=== PATIENT | female | born 1960 | race Caucasian/White ===

== ENCOUNTER 2017-05-23 10:55 | Emergency (ER) | payer BC ==
--- NOTE | 2017-05-23 12:08 | EDM.PDOC ---
ED HPI GENERAL MEDICAL PROBLEM - General Chief Complaint: Respiratory Problem Stated Complaint: CHEST CONGESTION,COUGH Time Seen by Provider: 05/23/17 11:40 Source of Information: Reports: Patient History Limitations: Reports: No Limitations - History of Present Illness INITIAL COMMENTS - FREE TEXT/NARRATIVE: HISTORY AND PHYSICAL: History of present illness: [Patient comes to the emergency room complaining of cough head and chest congestion. She has a long history of upper respiratory infections and bronchitis which typically progressed since pneumonia. She's received 2 rounds of antibiotics as well as 2 doses of steroids over the past couple of months for her symptoms. She feels as though she still has not kicked her symptoms. She is blowing out thick green nasal discharge and blood from her sinuses. Her face is tender with palpation. She has some mild headache across her face. She is also coughing up thick green sputum. No chest pain or shortness of breath. She quit smoking 5 years ago and occasionally her chest feels tight. She likes to keep albuterol inhaler on hand to use when she feels she needs it. She requests a refill of this today. No fever or chills. No abdominal pain, change in appetite, nausea or vomiting. No headaches or earaches. Denies sore throat. She received a flu shot this year. No muscle or joint aches or pains.] Review of systems: As per history of present illness and below otherwise all systems reviewed and negative. Past medical history: As per history of present illness and as reviewed below otherwise noncontributory. Surgical history: As per history of present illness and as reviewed below otherwise noncontributory. Social history: No reported history of drug or alcohol abuse. Family history: As per history of present illness and as reviewed below otherwise noncontributory. Physical exam: HEENT: Atraumatic, normocephalic. TMs are pearly hood and without erythema or effusion. Nares are boggy with purulent and bloody discharge present in canals. Oral mucous membranes are pink and moist. No tonsillar swelling erythema or exudate. Frontal and maxillary sinuses are tender with palpation. Neck is supple , there is no lymphadenopathy appreciated. Lungs: Clear to auscultation, breath sounds equal bilaterally. No wheezing crackles or rales. Heart: S1S2, regular rate and rhythm., negative for clicks, rubs, or JVD. Abdomen: Soft, nondistended, nontender. Pelvis: Stable nontender. Genitourinary: Deferred. Rectal: Deferred. Extremities: Atraumatic. Neurovascular unremarkable. Neuro: Awake, alert, oriented. Motor and sensory unremarkable throughout. Exam nonfocal. Impression: [URI] Plan: [Discussed with patient that she needs close follow-up with primary care this week. Referral is given. Encouraged symptomatic treatment and will treat with antibiotics given her history of pneumonia and smoking. She is in agreement with today's discussion all of her questions are answered and concerns are addressed. Strict return precautions are also reviewed. Rx is written for albuterol inhaler #1 sig 1-2 puffs every 6 hours as needed for cough or wheezing 0 refills, Levaquin 500 milligrams #5 si po by mouth daily 0 refills.] Definitive disposition and diagnosis as appropriate pending reevaluation and review of above. - Related Data Allergies Allergy/AdvReac Type Severity Reaction Status Date / Time No Known Allergies Allergy Verified 05/23/17 11:37 Home Meds: Home Meds Albuterol [IJD: Albuterol HFA] 1 puff .XX ASDIRECTED 05/23/17 [History] Past Medical History - Past Health History Medical/Surgical History: Denies Medical/Surgical History Respiratory History: Reports: Bronchitis, Recurrent Social & Family History - Family History Family Medical History: Noncontributory - Tobacco Use Smoking Status *Q: Never Smoker - Recreational Drug Use Recreational Drug Use: No ED ROS GENERAL - Review of Systems Review Of Systems: ROS reveals no pertinent complaints other than HPI. ED EXAM, GENERAL - Physical Exam Exam: See Below Course - Vital Signs Last Recorded V/S: Last Vital Signs Temp 98.8 F 05/23/17 10:55 Pulse 60 05/23/17 10:55 Resp 18 05/23/17 10:55 BP 118/56 L 05/23/17 10:55 Pulse Ox 99 05/23/17 10:55 Departure - Departure Time of Disposition: 12:10 Disposition: Home, Self-Care 01 Condition: Good Clinical Impression: URI (upper respiratory infection) - Discharge Information Referrals: PCP,None [Primary Care Provider] - Additional Instructions: The following information is given to patients seen in the emergency department who are being discharged to home. This information is to outline your options for follow-up care. We provide all patients seen in our emergency department with a follow-up referral. The need for follow-up, as well as the timing and circumstances, are variable depending upon the specifics of your emergency department visit. If you don't have a primary care physician on staff, we will provide you with a referral. We always advise you to contact your personal physician following an emergency department visit to inform them of the circumstance of the visit and for follow-up with them and/or the need for any referrals to a consulting specialist. The emergency department will also refer you to a specialist when appropriate. This referral assures that you have the opportunity for follow-up care with a specialist. All of these measure are taken in an effort to provide you with optimal care, which includes your follow-up. Under all circumstances we always encourage you to contact your private physician who remains a resource for coordinating your care. When calling for follow-up care, please make the office aware that this follow-up is from your recent emergency room visit. If for any reason you are refused follow-up, please contact the [facility] emergency department at and asked to speak to the emergency department charge nurse. [facility] [address] [place] [address] Follow-up with your PCP at the clinic listed above in the next 48-72 hours. Take Antibiotic as prescribed. Mucinex, Claritin as needed. Push fluids. Return to ER as needed as discussed.
== END 2017-05-23 12:20 | disposition home or self-care (01) ==
LOC: MW.ED 10:55
DX: J06.9 Acute upper respiratory infection, unspecified (principal); Z87.01 Personal history of pneumonia (recurrent); Z87.891 Personal history of nicotine dependence
CPT/HCPCS: 99282

== ENCOUNTER 2019-03-22 06:35 | Day surgery (SDC) | payer BC, OTHER ==
[~2019-03-22 06:35] MED LIST: Lactated Ringers 1,000 ML IV SCH; Sodium Chloride 0.9% 10 ML SDV IV PRN; Sodium Chloride 0.9% 10 ML Syringe FLUSH PRN; Sodium Chloride 0.9% 2.5 ML Syringe FLUSH PRN
[2019-03-22] MEDS ORDERED: Propofol 200 MG/20 ML SDV ONE (07:07)
[2019-03-22] MEDS ORDERED: Lidocaine 2% 5 ML SDV ONE (07:07)
[2019-03-22] MEDS ORDERED: fentaNYL 100 MCG/2 ML SDV ONE (07:08)
[2019-03-22] MEDS ORDERED: Midazolam 1 MG/ML 2 ML SDV ONE (07:08)
--- NOTE | 2019-03-22 07:25 | PCM.PREANE ---
Preanesthetic Assessment - Anesthesia/Transfusion/Family Hx Anesthesia History: Prior Anesthesia Without Reaction Other Type of Anesthesia Reaction Comment: "HR dropped while they were prepping me for my last C/S" Family History of Anesthesia Reaction: No Transfusion History: No Prior Transfusion(s) - Review of Systems General: No Symptoms Pulmonary: No Symptoms Cardiovascular: No Symptoms Gastrointestinal: No Symptoms Neurological: No Symptoms Other: Reports: None - Physical Assessment NPO Status Date: 03/21/19 NPO Status Time: 23:00 Vital Signs: Last Vital Signs Temp 98.2 F 03/22/19 07:12 Pulse 78 03/22/19 07:12 Resp 16 03/22/19 07:12 BP 105/52 L 03/22/19 07:12 Pulse Ox 96 03/22/19 07:12 Height: 5 ft 3 in Weight: 79.832 kg ASA Class: 2 Mental Status: Alert & Oriented x3 Airway Class: Mallampati = 2 Dentition: Reports: Normal Dentition ROM/Head Extension: Full Lungs: Clear to Auscultation, Normal Respiratory Effort Cardiovascular: Regular Rate, Regular Rhythm - Lab Values: Laboratory Last Values Urine HCG, Qual NEGATIVE (NEGATIVE) 03/22/19 06:45 - Allergies Allergies/Adverse Reactions: Allergies Allergy/AdvReac Type Severity Reaction Status Date / Time No Known Allergies Allergy Verified 03/17/19 12:55 - Blood Blood Available: No - Anesthesia Plan Pre-Op Medication Ordered: None - Acknowledgements Anesthesia Type Planned: General Anesthesia Pt an Appropriate Candidate for the Planned Anesthesia: Yes Alternatives and Risks of Anesthesia Discussed w Pt/Guardian: Yes Additional Comments: PMH: asthma flare last 2 weeks, precip by cold, using rescue inhaler 1-2x/day, migraines, PLAN: mac if possible to avoid ETT PreAnesthesia Questionnaire - Past Health History Medical/Surgical History: Denies Medical/Surgical History HEENT History: Reports: Other (See Below) Other HEENT History: wears contacts Cardiovascular History: Reports: None Respiratory History: Reports: Asthma Gastrointestinal History: Reports: GERD Other Gastrointestinal History: hx gastric ulcers Genitourinary History: Reports: None 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: Musculoskeletal History: Reports: Fracture Other Musculoskeletal History: hx fx foot Neurological History: Reports: Concussion, Migraines Psychiatric History: Reports: None Endocrine/Metabolic History: Reports: Obesity/BMI 30+ Hematologic History: Reports: None Immunologic History: Reports: None Oncologic (Cancer) History: Reports: None Dermatologic History: Reports: None - Past Surgical History Head Surgeries/Procedures: Reports: None HEENT Surgical History: Reports: None Cardiovascular Surgical History: Reports: None Respiratory Surgical History: Reports: None GI Surgical History: Reports: None Female Surgical History: Reports: Breast Biopsy, Section Endocrine Surgical History: Reports: None Neurological Surgical History: Reports: None Musculoskeletal Surgical History: Reports: Other (See Below) Other Musculoskeletal Surgeries/Procedures:: rt hand surgery x2 Oncologic Surgical History: Reports: None Dermatological Surgical History: Reports: None - SUBSTANCE USE Smoking Status *Q: Former Smoker Tobacco Use Within Last Twelve Months: No Recreational Drug Use History: No - HOME MEDS Home Medications: Home Meds Albuterol [Proventil HFA] 1 - 2 puff INH Q6H PRN 03/17/19 [History] Albuterol [Proventil Neb Soln] 1 unit NEB ASDIRECTED PRN 03/17/19 [History] Azelastine HCl [Azelastine] 1 spray NASBOTH BID PRN 03/17/19 [History] Famotidine [Acid Soft Iron Inspector] 1 tab PO ASDIRECTED PRN 03/17/19 [History] Fluticasone Propionate [Flovent HFA] 2 puff INH BID 03/17/19 [History] Furosemide 40 mg PO DAILY 03/17/19 [History] Mometasone Furoate 1 spray NASBOTH BID 03/17/19 [History] Potassium Chloride 20 meq PO DAILY 03/17/19 [History] Topiramate 50 mg PO BID 03/17/19 [History] - CURRENT (IN HOUSE) MEDS Current Meds: Current Medications Lactated Ringer's (Ringers, Lactated) 1,000 mls @ 125 mls/hr IV ASDIRECTED SANGITA Sodium Chloride (Saline Flush) 10 ml FLUSH ASDIRECTED PRN PRN Reason: Keep Vein Open Sodium Chloride (Saline Flush) 2.5 ml FLUSH ASDIRECTED PRN PRN Reason: Keep Vein Open Sodium Chloride (Normal Saline) 10 ml IV ASDIRECTED PRN PRN Reason: IV Use Discontinued Medications Fentanyl (Sublimaze) Confirm Administered Dose 100 mcg .ROUTE .STK-MED ONE Stop: 03/22/19 07:09 Lidocaine (Xylocaine-Mpf 2%) Confirm Administered Dose 5 ml .ROUTE .STK-MED ONE Stop: 03/22/19 07:08 Midazolam HCl (Versed 1 Mg/Ml) Confirm Administered Dose 2 mg .ROUTE .STK-MED ONE Stop: 03/22/19 07:09 Propofol (Diprivan 20 Ml) Confirm Administered Dose 400 mg .ROUTE .STK-MED ONE Stop: 03/22/19 07:08
[2019-03-22] MEDS ORDERED: Bupivacaine 0.5% 10 ML SDV ONE (07:40)
[2019-03-22] MEDS ORDERED: Lidocaine 1% 20 ML MDV ONE (07:40)
[2019-03-22] MEDS ORDERED: Glycopyrrolate 0.2 MG/ML SDV ONE (07:59)
[2019-03-22] MEDS ORDERED: Octyl 2-Cyanoacrylate 1 Tube ONE (08:01)
--- NOTE | 2019-03-22 08:35 | PCM.POSTAN ---
POST ANESTHESIA ASSESSMENT - MENTAL STATUS Mental Status: Alert, Oriented - VITAL SIGNS Vital Signs: Last Vital Signs Temp 98.2 F 03/22/19 07:12 Pulse 69 03/22/19 08:29 Resp 15 03/22/19 08:29 BP 98/47 L 03/22/19 08:29 Pulse Ox 97 03/22/19 08:29 - RESPIRATORY Respiratory Status: Respiratory Rate WNL, Airway Patent, O2 Saturation Stable - CARDIOVASCULAR CV Status: Pulse Rate WNL, Blood Pressure Stable - GASTROINTESTINAL GI Status: No Symptoms - POST OP HYDRATION Hydration Status: Adequate & Stable
--- NOTE | 2019-03-22 09:07 | PCM.OPNOTE ---
- General Post-Op/Procedure Note Date of Surgery/Procedure: 03/22/19 Operative Procedure(s): Posterior scalp cyst excision Findings: 5mm cyst. Margins 1 x 0.8 x 0.6 Pre Op Diagnosis: Scalp cyst Post-Op Diagnosis: same Anesthesia Technique: MAC Primary Surgeon: Carisa Ruvalcaba Condition: Good Free Text/Narrative:: Intake & Output 03/21/19 03/22/19 03/22/19 22:59 06:59 14:59 Intake Total 650 Balance 650
--- NOTE | 2019-03-22 10:50 | PCM48HPAN ---
Post Anesthesia Note - EVALUATION WITHIN 48HRS OF ANESTHETIC Vital Signs in Normal Range: Yes Patient Participated in Evaluation: Yes Respiratory Function Stable: Yes Airway Patent: Yes Cardiovascular Function Stable: Yes Hydration Status Stable: Yes Pain Control Satisfactory: Yes Nausea and Vomiting Control Satisfactory: Yes Mental Status Recovered: Yes Vital Signs: Last Vital Signs Temp 98.2 F 03/22/19 07:12 Pulse 68 03/22/19 08:50 Resp 16 03/22/19 08:50 BP 88/52 L 03/22/19 08:50 Pulse Ox 98 03/22/19 08:50
--- NOTE | 2019-03-23 17:53 | OR ---
SURGEON: CAIRSA RUVALCABA MD DATE OF PROCEDURE: 03/22/2019 PREOPERATIVE DIAGNOSIS: Posterior scalp lesion. POSTOPERATIVE DIAGNOSIS: Posterior scalp lesion. PROCEDURE PERFORMED: Excision, posterior scalp lesion. PRIMARY SURGEON: Carisa Ruvalcaba MD. ANESTHESIA: MAC, local. ESTIMATED BLOOD LOSS: 2 mL. FLUIDS: See Anesthesia record. FINDIN x 0.8 x 0.6 cm posterior scalp skin lesion. COMPLICATIONS: None. INDICATIONS: The patient is a 58-year-old female who presents with a longstanding posterior scalp lesion. This will occasionally get inflamed and infected. Given these findings, the patient and I discussed the need for excision. I explained the procedure; expected perioperative course; and risks including bleeding, infection, or damage to surrounding structures. The patient verbalized understanding and wishes to proceed. PROCEDURE IN DETAIL: The patient was brought into the OR and placed in the OR cart in a left lateral decubitus position. A time-out was completed verifying the patient's name, age, date of , allergies, and procedure to be performed. Monitored anesthesia care was induced. The posterior scalp was prepped and draped in usual standard fashion. I anesthetized the area overlying the posterior scalp mass with a 1:1 mixture of 0.5% lidocaine plain and 1% lidocaine plain. A 15 blade was used to make an incision over the top of this mass in horizontal fashion. Cautery was used to dissect down to the subcutaneous fat layer. A small cyst like structure was noted. It was incidentally entered and a small amount of fluid came out. I excised an area 1 x 0.8 x 0.6 cm in size, which contained the cyst. This was sent to pathology, labeled as posterior scalp cyst. Hemostasis was achieved with electrocautery. The wound was then closed with 3-0 Prolene sutures which were placed in horizontal mattress fashion. The wound was then covered with Dermabond. The patient tolerated the procedure well and was taken to the PACU in stable condition. All counts were complete and correct at the end of the case. TERRI / BILL /[id number]
== END 2019-03-22 09:00 | disposition home or self-care (01) ==
LOC: MW.SDS 06:35
PROVIDERS: ATTEND Surgery
DX: D23.4 Other benign neoplasm of skin of scalp and neck (principal); J45.909 Unspecified asthma, uncomplicated; K21.9 Gastro-esophageal reflux disease without esophagitis; G43.909 Migraine, unspecified, not intractable, without status migrainosus; E66.9 Obesity, unspecified; Z79.51 Long term (current) use of inhaled steroids; Z87.891 Personal history of nicotine dependence; Z79.899 Other long term (current) drug therapy
CPT/HCPCS: 11421; 81025; A9270; J2001; J2250; J2704; J3010; J3490; J7120; 88305